=== PATIENT | female | born 1975 ===

== ENCOUNTER 2021-12-11 17:12 | Inpatient (IN) ==
[2021-12-11] MEDS ORDERED: ONDANSETRON 4 MG/2 ML VIAL IV PRN (17:21)
[2021-12-11] MEDS ORDERED: hydrALAZINE 20 MG/1 ML VIAL IV PRN (17:21)
[2021-12-11] MEDS ORDERED: ACETAMINOPHEN 325 MG TABLET PO PRN (17:21)
[2021-12-11] MEDS ORDERED: NITROGLYCERIN DRIP 50 MG/250 ML BOTTLE IV ONE (17:39)
[2021-12-11] MEDS ORDERED: HEPARIN/NACL 0.9% 2 UNITS/ML 2,000 UNIT/1,000 ML BAG IV ONE (17:39)
[2021-12-11] MEDS ORDERED: VERAPAMIL 5 MG/2 ML VIAL ONE (17:39)
[2021-12-11] MEDS ORDERED: fentaNYL 100 MCG/2 ML VIAL ONE (17:46)
[2021-12-11] MEDS ORDERED: MIDAZOLAM 2 MG/2 ML VIAL ONE ×3 (17:46→18:21)
[2021-12-11] MEDS ORDERED: HEPARIN 5,000 UNIT/1 ML VIAL ONE (18:04)
[2021-12-11] MEDS ORDERED: HYDROmorphone 1 MG/1 ML SYRINGE ONE (18:10)
[2021-12-11] MEDS: SODIUM CHLORIDE 0.9% 1,000 ML IV SCH (18:45)
[2021-12-11] MEDS: ROSUVASTATIN 20 MG TABLET PO SCH (21:34)
[2021-12-11] MEDS: TICAGRELOR 90 MG TABLET PO SCH (21:35)
[2021-12-11] MEDS: carvediloL 3.125 MG TABLET PO SCH (22:00)
[2021-12-12] MEDS: SODIUM CHLORIDE 0.9% 1,000 ML IV SCH ×2 (01:30→09:42)
[2021-12-12 01:41] LABS: Basophils % 0.3 % (0.0-0.8); Eosinophils # 0.2 10*3/uL (0.0-0.87); Eosinophils % 1.4 % (0.00-10.9); Hematocrit 32.3 VOL% (35.7-47.0); Hemoglobin 10.4 GM/DL (12.0-16.0); Immature Granulocytes % 0.1 %; Immature Granulocytes Absolute 0.01 #; Lymphocytes # 3.5 10*3/uL (1.4-4.0); Lymphocytes % 33.1 % (21.3-54.2); Mean Corpuscular HGB Conc 32.2 GM/DL (32-36); Mean Corpuscular Volume 86.6 FL (87-102); Mean Platelet Volume 10.2 FL (9.6-12.0); Monocytes % 8.9 % (1.7-12.7); Neutrophils % 56.2 % (38.7-73.9); Platelet Count 323 T/CUMM (130-400); Red Blood Count 3.73 MC/CUMM (3.8-5.5); Red Cell Distribution Width 15.3 % (9.3-17.3); White Blood Count 10.6 T/CUMM (4-12)
[2021-12-12 05:56] LABS: Albumin 2.9 G/DL (3.4-5.0); Bilirubin,Total 0.4 MG/DL (0.20-1.00); Calcium 8.8 MG/DL (8.5-10.1); Osmolality,Calculated 281.1 MOS/KG (273-304); Potassium 3.8 MMOL/L (3.5-5.1); Risk Ratio 3.93; Thyroid Stimulating Hormone 0.991 uIU/ml (0.358-3.74); Total Protein 6.9 G/DL (6.4-8.2)
[2021-12-12] MEDS: TICAGRELOR 90 MG TABLET PO SCH ×2 (08:41→20:53)
[2021-12-12] MEDS: ASPIRIN EC 81 MG TABLET PO SCH (08:41)
[2021-12-12] MEDS: PANTOPRAZOLE 40 MG TABLET PO SCH (08:41)
[2021-12-12] MEDS: LOSARTAN 25 MG TABLET PO SCH (08:41)
[2021-12-12] MEDS: carvediloL 3.125 MG TABLET PO SCH ×2 (08:42→20:53)
[2021-12-12] MEDS: NICOTINE 21 MG/24 HR PATCH TRANSDERM SCH ×2 (09:11→09:42)
[2021-12-12 09:26] LABS: Ferritin 7.1 ng/mL (8-252)
[2021-12-12] MEDS ORDERED: ALPRAZolam 0.5 MG TABLET PO PRN (09:38)
[2021-12-12] MEDS: ENOXAPARIN 40 MG/0.4 ML SYRINGE SUBCUT SCH (10:15)
[2021-12-12 10:55] LABS: Barbiturates Screen,Urine Negative (Negative); Benzodiazepines Screen,Urine Positive (Negative); Cannabinoid Screen,Urine Negative (Negative); Opiate Screen,Urine Positive (Negative); Phencyclidine Screen,Urine Negative (Negative)
[2021-12-12] MEDS: ROSUVASTATIN 20 MG TABLET PO SCH (20:53)
[2021-12-13 05:38] LABS: Basophils % 0.4 % (0.0-0.8); Eosinophils # 0.2 10*3/uL (0.0-0.87); Eosinophils % 2.4 % (0.00-10.9); Hematocrit 33.9 VOL% (35.7-47.0); Hemoglobin 10.8 GM/DL (12.0-16.0); Immature Granulocytes % 0.1 %; Immature Granulocytes Absolute 0.01 #; Lymphocytes # 2.8 10*3/uL (1.4-4.0); Lymphocytes % 34.4 % (21.3-54.2); Mean Corpuscular HGB Conc 31.9 GM/DL (32-36); Mean Corpuscular Volume 86.3 FL (87-102); Mean Platelet Volume 9.6 FL (9.6-12.0); Monocytes % 9.3 % (1.7-12.7); Neutrophils % 53.4 % (38.7-73.9); Platelet Count 337 T/CUMM (130-400); Red Blood Count 3.93 MC/CUMM (3.8-5.5); Red Cell Distribution Width 15.5 % (9.3-17.3); White Blood Count 8.3 T/CUMM (4-12)
[2021-12-13 06:02] LABS: Calcium 8.4 MG/DL (8.5-10.1); Potassium 3.4 MMOL/L (3.5-5.1)
[2021-12-13] MEDS ORDERED: POTASSIUM CHLORIDE 20 MEQ TABLET PO ONE (08:01)
[2021-12-13] MEDS ORDERED: ALPRAZolam 0.5 MG TABLET PO ONE (08:24)
[2021-12-13] MEDS: ENOXAPARIN 40 MG/0.4 ML SYRINGE SUBCUT SCH (10:03)
[2021-12-13] MEDS: ASPIRIN EC 81 MG TABLET PO SCH (10:03)
[2021-12-13] MEDS: LOSARTAN 25 MG TABLET PO SCH (10:03)
[2021-12-13] MEDS: PANTOPRAZOLE 40 MG TABLET PO SCH (10:03)
[2021-12-13] MEDS: TICAGRELOR 90 MG TABLET PO SCH (10:04)
[2021-12-13] MEDS: carvediloL 3.125 MG TABLET PO SCH (10:04)
[2021-12-13] MEDS: NICOTINE 21 MG/24 HR PATCH TRANSDERM SCH ×2 (10:28)
[2021-12-13 12:24] VITALS: BP 109/67
== END 2021-12-13 16:00 | disposition home or self-care (01) | DRG 174 ==
LOC: N.CC 17:12 → N.TELEN 12-12 15:29
PROVIDERS: ADMIT Internal Medicine Cardiovascular Disease; ATTEND Internal Medicine Cardiovascular Disease
PROC: CLCCHCL (ICD-10-PCS; 2021-12-11 18:15)